=== PATIENT | female | born 1990 | race Caucasian/White ===

== ENCOUNTER → 2018-04-18 08:25 | Outpatient (CLI) | payer OTHER, MEDICAID, SELFPAY ==
[2018-04-18 09:13] LABS: Kit/Specimen SENT
[2018-04-18 11:02] LABS: Glucose 1 Hour 171 mg/dL
[2018-04-18 12:55] LABS: Glucose 3 Hour 78 mg/dL
== END ==
PROVIDERS: Advanced Practice Midwife; Obstetrics & Gynecology; PCP Nurse Practitioner Family; Visit Provider Advanced Practice Midwife
DX: Z32.01 Encounter for pregnancy test, result positive (principal); O99.810 Abnormal glucose complicating pregnancy; Z36.89 Encounter for other specified antenatal screening
CPT/HCPCS: 80055; 86900; 86901; 82951

== ENCOUNTER → 2018-05-15 15:56 | Outpatient (CLI) | payer MEDICAID, SELFPAY ==
[2018-05-16 17:13] LABS: AFP 22.2 ng/mL; Calculated age at EDD 28 years; Cigarette smoking status non-smoker; GA used in risk estimate Scan estimate; IVF Pregnancy No; Initial or repeat testing Initial testing; Insulin dependent diabetes No; Maternal Weight 199 lbs; Number of Fetuses 1; Physician Phone Number 802-748-7300; Prev Pregnancy w/NTD No; RECOMMENDED FOLLOW UP None.; Results Summary Normal risk
== END ==
PROVIDERS: PCP Nurse Practitioner Family; Visit Provider Advanced Practice Midwife
DX: Z34.02 Encounter for supervision of normal first pregnancy, second trimester (principal); Z36.89 Encounter for other specified antenatal screening
CPT/HCPCS: 36415; 82105

== ENCOUNTER 2018-06-12 00:53 | Outpatient (CLI) | payer MEDICAID, SELFPAY ==
--- NOTE | 2018-06-12 14:44 | DI.US_ITS ---
SYMPTOM/DIAGNOSIS: Z34.90 Many abnormalities cannot be diagnosed. A normal exam does not exclude a congenital anomaly. Radiology No. [id number] LMP: Exam Date:06/12/18 [facility] wks days on EDC ([facility]) Confirmed: HISTORY: SURVEY ---- PREDICTED GESTATIONAL AGE NUMBER 19 +5 weeks with a range of 18 +5 week to 20 +5 weeks. 1 Determined by_XX__1STUS___LMP___HISTORY Info. pertaining to fetus # PLACENTA PRESENTATION Grade I Cephalic_X__ Anterior_X__Posterior___ Breech____ Right Left Transverse(head right___ Fundal___Low-lying_X__Previa___ Transverse(head left___ Varying BIOMETRY AMNIOTIC FLUID BPD: 46 mm 20 - weeks Normal HC: 171 mm 19 +5 weeks AC: 154 mm 20 +4 weeks FL: 32 mm 20 - weeks AMNIOTIC FLUID INDEX >26 WK CRL: mm weeks Cisterna Magna: 3.6 mm CI: 82 RUQ: LUQ Cerebellum: 2.0 cm EFW: 341 grams 76% Percentile RLQ: LLQ Total: cms Composite AGE= 20 +1 wks EDC by ___10/29/18 BIOPHYSICAL PROFILE ANATOMY IDENTIFIED SCORE 0/2 Heart: 4-Chamber_X__Rate:BPM__150 BPM___ LVOT:__X RVOT: X___ Amniotic Fluid(>2cms)____ Stomach:__X Kidneys:___X____ Respirations (>30 secs) Bladder:__X Post. Fossa:___X Body Flex/Extension 3 vessel cord:___X____Ventricles:___X cord insertion:___X__ Lips:__X__ Extremity Flex/Extension spinal morphology:__X Nose:X Total Score= Palate:__X NS=not seen
== END 2018-06-12 01:13 ==
PROVIDERS: PCP Nurse Practitioner Family; Visit Provider Advanced Practice Midwife
DX: Z34.92 Encounter for supervision of normal pregnancy, unspecified, second trimester (principal)
CPT/HCPCS: 76805

== ENCOUNTER 2018-08-06 13:45 | Outpatient (CLI) | payer MEDICAID, SELFPAY ==
[2018-08-06 15:30] LABS: Glucose,1 Hr (Glucola) 126 mg/dL (80-140)
[2018-08-06 15:41] LABS: HCT 35.3 % (36.0-46.0); HGB 11.8 g/dL (12.0-15.5); Mean Corp. HGB Concentration 33.4 g/dL (32.0-36.0); Mean Corpuscular Hemoglobin 28.6 pg (27.0-33.0); Mean Corpuscular Volume 85.7 fL (80-95); Mean Platelet Volume 10.2 fL (8.0-11.0); Platelet Count 295 x1000/uL (130-400); RBC 4.12 m/cumm (4.00-5.20); RBC Distribution Width 13.6 % (11.7-14.6); White Blood Cell Count 14.73 k/cumm (4.4-10.8)
== END 2018-08-06 14:05 ==
PROVIDERS: Visit Provider Advanced Practice Midwife
DX: Z34.93 Encounter for supervision of normal pregnancy, unspecified, third trimester (principal)
CPT/HCPCS: 36415; 82950; 85027

== ENCOUNTER 2018-09-19 00:17 | Outpatient (CLI) | payer MEDICAID, SELFPAY ==
--- NOTE | 2018-09-19 13:21 | DI.US_ITS ---
SYMPTOMS/DIAGNOSIS: SIZE > DATES, Z34.90 OB ULTRASOUND: Many abnormalities cannot be diagnosed. A normal exam does not exclude a congenital anomaly. Radiology No. [id number] LMP: Exam Date: 09/19/18 [facility] 6 wks 1 day on 03/08/18 EDC ([facility]) Confirmed: HISTORY: PREDICTED GESTATIONAL AGE NUMBER 34 weeks with a range of 33 weeks to 35 weeks. 1 Determined by_X__1ST US___LMP___HISTORY PLACENTA PRESENTATION Grade II Cephalic_X__ Anterior_X__Posterior___ Breech____ Right Left Transverse(head right___ Fundal___Low-lying___Previa___ Transverse(head left___ Varying BIOMETRY AMNIOTIC FLUID BPD: 82 mm 33 weeks Normal HC: mm 33+4 weeks AC: mm 33+4 weeks FL: mm 33+1 weeks AMNIOTIC FLUID INDEX >26 WK CRL: mm weeks Cisterna Magna: mm CI: 0.79 RUQ: 4.40 LUQ: 2.86 Cerebellum: cm EFW: 2248 grams Percentile: 37th RLQ: 2.05 LLQ: 2.64 Total: 12. 0 cm Composite AGE= 33+4 wks EDC by US: 11/03/18 BIOPHYSICAL PROFILE ANATOMY IDENTIFIED SCORE 0/2 Heart: 4-Chamber___Rate:BPM 133 LVOT: RVOT: Amniotic Fluid(>2cms)____ Stomach:__X Kidneys: Respirations (>30 secs) Bladder:___X Post. Fossa: Body Flex/Extension 3 vessel cord: Ventricles: cord insertion: Lips:____ Extremity Flex/Extension spinal morphology: Nose: Total Score= Palate: NS=not seen COMMENTS: Comparison is made with May,. The fetus is in cephalic position. The placenta is anterior. The biometric measurements correspond to 33 weeks 4 days. The amniotic fluid index is 12.0. The estimated weight is 2248 g, corresponding to the 37th percentile. IMPRESSION: weight and LASHAUN are within normal limits.
== END 2018-09-19 00:37 ==
PROVIDERS: Visit Provider Nurse Practitioner
DX: Z34.93 Encounter for supervision of normal pregnancy, unspecified, third trimester (principal); Z36.89 Encounter for other specified antenatal screening
CPT/HCPCS: 76816

== ENCOUNTER 2018-10-04 16:52 | Outpatient (REF) | payer MEDICAID, SELFPAY | END 2018-10-04 17:12 | LOC: LBN 16:52 | PROVIDERS: Visit Provider Nurse Practitioner | DX: Z34.93 Encounter for supervision of normal pregnancy, unspecified, third trimester (principal); Z36.85 Encounter for antenatal screening for Streptococcus B | CPT/HCPCS: 87081 ==

== ENCOUNTER 2018-10-12 14:54 | Outpatient (CLI) | payer MEDICAID, SELFPAY | END 2018-10-12 15:14 | PROVIDERS: Visit Provider Advanced Practice Midwife | DX: O76 Abnormality in fetal heart rate and rhythm complicating labor and delivery (principal); O99.333 Smoking (tobacco) complicating pregnancy, third trimester; F17.210 Nicotine dependence, cigarettes, uncomplicated; Z3A.37 37 weeks gestation of pregnancy | CPT/HCPCS: 59025 ==

== ENCOUNTER 2018-10-19 12:00 | Outpatient (REF) | payer MEDICAID, SELFPAY ==
[2018-10-19 14:21] LABS: *AMPHETAMINES SCREEN URINE Negative (Negative); *BARBITURATES SCREEN URINE Negative (Negative); *BENZODIAZEPINES SCREEN URINE Negative (Negative); Cannabinoids THC POSITIVE (Negative); Cocaine Screen,Urine Negative (Negative); METHADONE URINE SCREEN Negative (Negative); OPIATES URINE SCREEN Negative (Negative)
[2018-10-19 14:22] LABS: Tricyclic Antidepressants Negative (Negative)
== END 2018-10-19 12:20 ==
LOC: LBN 12:00
PROVIDERS: Visit Provider Advanced Practice Midwife
DX: Z34.93 Encounter for supervision of normal pregnancy, unspecified, third trimester (principal); F12.90 Cannabis use, unspecified, uncomplicated
CPT/HCPCS: 80307

== ENCOUNTER 2018-10-25 21:28 | Inpatient (IN) | payer MEDICAID, SELFPAY ==
[2018-10-25 22:24] LABS: HGB 13.2 g/dL (12.0-15.5); Mean Corpuscular Volume 87.9 fL (80-95); Mean Platelet Volume 10.4 fL (8.0-11.0); Platelet Count 254 x1000/uL (130-400); RBC 4.55 m/cumm (4.00-5.20); RBC Distribution Width 14.9 % (11.7-14.6); White Blood Cell Count 15.14 k/cumm (4.4-10.8)
[2018-10-25 22:39] LABS: ALT 21 U/L (12-78); AST 20 U/L (15-37); Albumin 2.7 g/dL (3.4-5.0); Alkaline Phosphatase 351 U/L (46-116); Bilirubin, Direct 0.05 mg/dL (0.00-0.20); Bilirubin, Total 0.2 mg/dL (0.2-1.0); CREATININE 0.56 mg/dL (0.55-1.02); Total Protein 7.1 g/dL (6.4-8.2); Uric Acid 4.2 mg/dL (2.6-6.0)
[2018-10-25 23:16] LABS: PROTEIN 25.6 mg/dL
[2018-10-25 23:20] LABS: COMMENT (LAB VIEW ONLY) 109.87 mg/dL; Prot/Crea Ur Ratio 0.23
[2018-10-26] MEDS: Normal Saline Flush 10 ML SYR IVP (01:18)
[2018-10-26] MEDS: Lactated Ringers 500 ML IV (01:30)
[2018-10-26] MEDS: fentaNYL 100 MCG/2 ML VIAL EP (02:23)
[2018-10-26] MEDS: Bupivacaine 0.25% Pres-Free 30 ML VIAL (02:27)
[2018-10-26] MEDS: Acetaminophen 325 MG TAB 650 MG PO ×2 (10:28→21:29)
[2018-10-26] MEDS: Lactated Ringers 1,000 ML 125 ML IV (12:45)
[2018-10-26] MEDS: Ibuprofen 600 MG TAB PO (21:28)
[2018-10-27] MEDS: Acetaminophen 325 MG TAB 650 MG PO ×3 (02:21→18:54)
[2018-10-27 07:56] LABS: HCT 37.4 % (36.0-46.0); HGB 12.1 g/dL (12.0-15.5); Mean Corp. HGB Concentration 32.4 g/dL (32.0-36.0); Mean Corpuscular Hemoglobin 28.9 pg (27.0-33.0); Mean Corpuscular Volume 89.3 fL (80-95); Mean Platelet Volume 10.6 fL (8.0-11.0); Platelet Count 227 x1000/uL (130-400); RBC 4.19 m/cumm (4.00-5.20); RBC Distribution Width 15.2 % (11.7-14.6); White Blood Cell Count 15.56 k/cumm (4.4-10.8)
[2018-10-27] MEDS: Ibuprofen 600 MG TAB PO ×2 (10:28→18:53)
[2018-10-27 18:51] LABS: HCT 36.9 % (36.0-46.0); HGB 11.9 g/dL (12.0-15.5); Mean Corp. HGB Concentration 32.2 g/dL (32.0-36.0); Mean Corpuscular Volume 89.8 fL (80-95); Mean Platelet Volume 10.2 fL (8.0-11.0); Platelet Count 243 x1000/uL (130-400); RBC 4.11 m/cumm (4.00-5.20); RBC Distribution Width 15.2 % (11.7-14.6); White Blood Cell Count 14.15 k/cumm (4.4-10.8)
[2018-10-27 19:40] LABS: ALT 28 U/L (12-78); AST 35 U/L (15-37); Albumin 2.5 g/dL (3.4-5.0); Alkaline Phosphatase 247 U/L (46-116); Bilirubin, Total 0.2 mg/dL (0.2-1.0); Total Protein 6.7 g/dL (6.4-8.2)
[2018-10-27 20:56] LABS: Bilirubin, Direct 0.06 mg/dL (0.00-0.20); Uric Acid 4.5 mg/dL (2.6-6.0)
[2018-10-28 08:31] LABS: HCT 38.2 % (36.0-46.0); HGB 12.3 g/dL (12.0-15.5); Mean Corp. HGB Concentration 32.2 g/dL (32.0-36.0); Mean Corpuscular Hemoglobin 28.8 pg (27.0-33.0); Mean Corpuscular Volume 89.5 fL (80-95); Mean Platelet Volume 10.3 fL (8.0-11.0); Platelet Count 233 x1000/uL (130-400); RBC 4.27 m/cumm (4.00-5.20); RBC Distribution Width 15.3 % (11.7-14.6)
[2018-10-28] MEDS: Acetaminophen 325 MG TAB 650 MG PO (08:31)
[2018-10-28] MEDS: Ibuprofen 600 MG TAB PO (08:31)
[2018-10-28 08:48] LABS: ALT 30 U/L (12-78); AST 32 U/L (15-37); Albumin 2.5 g/dL (3.4-5.0); Alkaline Phosphatase 236 U/L (46-116); Anion Gap 9.2 mmol/L (3-11); BUN 6 mg/dL (7-18); Bilirubin, Total 0.2 mg/dL (0.2-1.0); CO2 25.8 mmol/L (21.0-32.0); CREATININE 0.45 mg/dL (0.55-1.02); Calcium 8.8 mg/dL (8.5-10.1); Chloride 105 mmol/L (98-107); Glucose 70 mg/dL (70-100); Potassium 3.9 mmol/L (3.5-5.1); Sodium 140 mmol/L (136-145); Total Protein 6.7 g/dL (6.4-8.2)
[2018-10-28] MEDS: Labetalol 100 MG TAB 50 MG PO (19:05)
[2018-10-29] MEDS: Acetaminophen 325 MG TAB 650 MG PO (00:25)
[2018-10-29] MEDS: Labetalol 100 MG TAB PO (04:39)
--- NOTE | 2018-10-29 08:18 | W.PM.DS.N ---
Date of service: 10/29/18 Time of Service: 08:18 DS: Diagnosis Discharge Diagnosis (1) Spontaneous vaginal delivery: Status: Acute (2) induced hypertension, delivered, current hospitalization: Status: Acute Asessment and Plan: Patient is a 28-year-old G2 now P1 female with a ANAT of 11/01/2018 who presented to the center with spontaneous rupture of membranes and had Pitocin augment patient of labor which resulted in a spontaneous vaginal delivery on 10/26/2018 a viable female weighing 6 pounds 6 ounces at 39-1/7 weeks estimated gestational age. Her name will be Katharine. Intrapartum course was significant for blood pressure the elevation 140s over high 90s. She does not require magnesium sulfate. During her course she continued to have blood pressure elevation with high systolics in the 160s and diastolics in the 105 range. Complains of lower extremity edema right upper quadrant pain her laboratory studies were normal. She had an occasional headache that was relieved with Tylenol. Pain was well controlled with NSAIDs. She received a dose of labetalol 50 mg orally on 10/28/2018 which did not result in a change in blood pressure. She received a second dose of 100 mg labetalol early in the morning of 10/29/2018 which reduced her blood pressure to the 130/90 range. Discharge Plan Disposition Patient Disposition: HOME Condition: Fair Discharge Details Reason For Visit: SROM IN EARLY LABOR AT TERM Admit Date/Time: 10/25/18 21:28 Admit Provider: Elizabeth Khan Attending Provider: Elizabeth Khan Primary Care Provider: None,None Hospital Course Hospital Course: Patient is a 28-year-old G2 now P1 female with a ANAT of 11/01/2018 who presented to the center with spontaneous rupture of membranes and had Pitocin augment patient of labor which resulted in a spontaneous vaginal delivery on 10/26/2018 a viable female weighing 6 pounds 6 ounces at 39-1/7 weeks estimated gestational age. Her name will be Katharine. Intrapartum course was significant for blood pressure the elevation 140s over high 90s. She does not require magnesium sulfate. During her course she continued to have blood pressure elevation with high systolics in the 160s and diastolics in the 105 range. Complains of lower extremity edema right upper quadrant pain her laboratory studies were normal. She had an occasional headache that was relieved with Tylenol. Pain was well controlled with NSAIDs. She received a dose of labetalol 50 mg orally on 10/28/2018 which did not result in a change in blood pressure. She received a second dose of 100 mg labetalol early in the morning of 10/29/2018 which reduced her blood pressure to the 130/90 range. Home Meds and New Rx's Prescriptions: No Action valacyclovir [Valtrex] 500 mg tablet 500 mg PO DAILY Qty: 30 RF: 0 PNV cmb#[id number] fumarate-FA [] 1 EACH tablet 1 ea PO RF: 0 aspirin [Aspirin Low Dose] 81 MG tablet,delayed release (DR/EC) 81 mg PO DAILY Qty: 90 RF: 3 Discharge Instructions Stand Alone Forms: BC Instructions, BC Post Vaginal Deliver Activity:: Activity as Tolerated Equipment/Supplies:: No Equipment Needed Diet:: As Tolerated Discharge Orders Discharge Orders: Discharge Order (Routine); Ordered 10/29/18 Ordered By: Sabiha Valverde Exam Const General: cooperative, healthy appearing and no acute distress Nutritional Appearance: overweight Orientation: alert, awake and oriented x3 Chest Chest: normal inspection of the chest Breast inspection: normal inspection of the breasts and other (Cracking right breast nipple) Resp Effort & Inspection: normal respiratory effort Cardio Rate: regular rate Rhythm: regular rhythm GI Inspection: normal to inspection Palpation: soft and no hepatosplenomegaly General: deferred (He I did this weekend this morning solution up to here usually the pain is ) External Female Exam: external appearance normal OB/External & Speculum: external exam normal Skin General skin exam: no rashes or lesions noted Neuro DTR's: Rt Patellar: 1+ and Lt Patellar: 1+ Extrem General: normal to inspection, normal capillary refill and other (No lower extremity edema) DS: Data Vitals/I&O Vitals and I&O: Vital Signs Pain Level 2 10/29/18 00:25 Labs on day of discharge: Labs from last 24 hours 10/28/18 10/28/18 08:16 08:16 WBC 11.90 H RBC 4.27 Hgb 12.3 Hct 38.2 MCV 89.5 MCH 28.8 MCHC 32.2 RDW 15.3 H Plt Count 233 MPV 10.3 Sodium 140 Potassium 3.9 Chloride 105 Carbon Dioxide 25.8 Anion Gap 9.2 BUN 6 L Creatinine 0.45 L Estimated GFR/1.73 m2 >= 60.00 Glucose 70 Calcium 8.8 Total Bilirubin 0.2 AST 32 ALT 30 Alkaline Phosphatase 236 H Total Protein 6.7 Albumin 2.5 L PFSH Medical History Herpes genitalis (Chronic) Marijuana user (Chronic 04/25/18) Tobacco user (Inactive 10/16/13) BMI 30.0-30.9,adult (Acute 03/13/18) Surgical History Excision, Pilonidal Cyst Social History Smoking and Tabacco status: Current every day History History 2 Para 0 Hx # Term Pregnancies 1 Multiple births 0 Hx # Pregnancies 0 Ectopic pregnancies 0 AB induced 1 Hx Number of Living Children 0 AB spontaneous 0
== END 2018-10-29 13:55 | disposition home or self-care (01) | DRG 806 ==
PROVIDERS: Advanced Practice Midwife; Admitting Provider Advanced Practice Midwife; Visit Provider Obstetrics & Gynecology Gynecology
DX: O70.0 First degree perineal laceration during delivery (principal); O99.324 Drug use complicating childbirth; Z37.0 Single live birth; O98.32 Other infections with a predominantly sexual mode of transmission complicating childbirth; O42.02 Full-term premature rupture of membranes, onset of labor within 24 hours of rupture; O13.5 Gestational [pregnancy-induced] hypertension without significant proteinuria, complicating the puerperium; Z3A.39 39 weeks gestation of pregnancy; F12.10 Cannabis abuse, uncomplicated; A60.00 Herpesviral infection of urogenital system, unspecified; O92.79 Other disorders of lactation; Z68.34 Body mass index [BMI] 34.0-34.9, adult; Z79.82 Long term (current) use of aspirin
CPT/HCPCS: 36415; 80053; 80076; 85027; 86850; 86900; 86901; 99238; 82565; 84156; 84550; J3010; J3490

== ENCOUNTER → 2023-10-12 16:35 | Outpatient (CLI) | payer SELFPAY ==
--- NOTE | 2023-10-12 16:00 | DI.RAD_ITS ---
Exam(s) XR KNEE RT 4V AP,LAT,CLARISSA,PAT EXAM: XR KNEE RT 4V AP,LAT,CLARISSA,PAT CLINICAL HISTORY: evaluate pathology, rt knee pain, M25.561. TECHNIQUE: 2D digital imaging was performed. Four views. COMPARISON: No exams were available for comparison FINDINGS: BONES: No acute fracture is present. No bony destructive lesion is seen. JOINTS: The knee is normally aligned. No joint effusion is seen. The joint spaces are maintained. No significant degenerative changes. SOFT TISSUE: Normal. IMPRESSION: Unremarkable radiographs of the right knee. DATA REPOSITORY: RADIATION DOSE DELIVERED:
== END ==
PROVIDERS: Visit Provider Nurse Practitioner Family
DX: M25.561 Pain in right knee (principal)
CPT/HCPCS: 73564